=== PATIENT | male | born 1985 | race Caucasian/White ===

== ENCOUNTER 2021-08-15 08:02 | Emergency (ER) | payer OTHER ==
[~2021-08-15] VITALS: Ht 182.9 cm; Wt 129.3 kg
[2021-08-15] MEDS ORDERED: NORCO5 PO (08:27)
[2021-08-15] MEDS ORDERED: MEDROLDOSEPACK PO (08:27)
[2021-08-15 08:37] VITALS: BP 174/94
== END 2021-08-15 08:37 | disposition home or self-care (01) ==
LOC: M.ERS 08:02
DX: M54.42 Lumbago with sciatica, left side (principal)